=== PATIENT | male | born 1960 | race Caucasian/White ===

== ENCOUNTER 2024-05-23 15:50 | Observation (INO) | payer BC ==
[2024-05-23 17:15] VITALS: BMI 20.9
[2024-05-23] MEDS: FLU (Fluarix Triv) TS24-25(6MOS UP)/PF 45 MCG/0.5 ML Syringe IM ONE (17:26)
[2024-05-23] MEDS: NACHLORIDE 0.45% 1,000 ML IV SCH ×2 (17:48→20:21)
--- NOTE | 2024-05-23 17:55 | RAD REPORT ---
Procedure: Chest Pa And Lat (2 Views) HISTORY: Vomiting.. Dehydration COMPARISON: none FINDINGS: The lungs appear clear of acute infiltrate. No significant pleural effusion noted. The heart is normal size. IMPRESSION: No acute abnormality is displayed.
[2024-05-23] MEDS ORDERED: ONDANSETRON 4 MG (ODT) TAB PO PRN (18:00)
[2024-05-23] MEDS ORDERED: LOPERAMIDE HCL 2 MG CAPSULE PO PRN (18:00)
[2024-05-23] MEDS ORDERED: POLYETHYL GLY 3350 17 GM/DOSE PO PRN (18:00)
[2024-05-23] MEDS ORDERED: ONDANSETRON 4 MG/2 ML VIAL IV PRN (18:00)
[2024-05-23] MEDS ORDERED: ACETAMINOPHEN 325 MG TABLET PO PRN (18:00)
[2024-05-23] MEDS ORDERED: DIPHENHYDRAMINE 25 MG TAB/CAP PO PRN (18:00)
--- NOTE | 2024-05-23 18:19 | RAD REPORT ---
EXAMINATION: CT ABDOMEN AND PELVIS WITH CONTRAST CLINICAL INDICATION: Abdominal pain TECHNIQUE: CT abdomen and pelvis was performed, after the administration of 100 cc Isovue-300.. Sagit yael and coronal reconstructions were obtained. One or more of the following dose reduction techniques were used: Automated exposure control, adjustment of the mA and kV according to patient si ze, and iterative reconstruction. Unless otherwise specified, incidental findings do not require dedicated imaging follow-up. [id number]. Oral contrast was not given which limits evaluation of bowel and appendix. COMPARISON: .None FINDINGS: Mild hepatomegaly. Fatty infiltration. Cholelithiasis.One stone is at the junction of the gallbladder neck and cystic duct. Gallbladder wall appears mildly thickened The spleen, pancreas,, adrenals and kidneys unremarkable Normal appendix. No evidence of diverticulitis. Small inguinal hernias containing fat. Spondylosis involves the lumbar spine resulting in spinal stenosis Mild thickening wall of the ileum. : IMPRESSION: Mild hepatomegaly with fatty infiltration Cholelithiasis. One stone is at the junction of the gallbladder neck and cystic duct. Mild gallbladder wall thickening may indicate cholecystitis Mild thickening wall of the ileum may indicate inflammation.
[2024-05-23 18:35] LABS: PT Prothrombin Time 12.1 SECONDS (9.4-12.5); PTT, Activated Partial Thromb 30.9 SECONDS (24.3-36.9); Protime INR 1.08
[2024-05-23 19:01] LABS: Albumin 3.4 g/dL (3.4-5.0); Bilirubin Direct 0.4 mg/dL (0-0.2); Bilirubin Indirect, Calculated 0.6 mg/dL (0.2-0.8); Globulin 3.3 g/dL (2.3-3.5); Protein, Total 6.7 g/dL (6.4-8.2); Thyroid Stimulating Hormone 1.69 uIU/mL (0.358-3.740)
[2024-05-23] MEDS ORDERED: CEFOXITIN 1 GM in NA CHLORIDE 0.9% 50 ML IVPB SCH (20:30)
[2024-05-23] MEDS ORDERED: cloNIDine HCL 0.1 MG TAB PO PRN ×2 (20:41→21:00)
[2024-05-23] MEDS ORDERED: levETIRAcetam 500 MG in NA CHLORIDE 0.9% 100 ML IV SCH (21:00)
[2024-05-23] MEDS: PANTOPRAZOLE 40 MG INJ IV SCH (22:03)
[2024-05-23] MEDS: SODIUM CHLORIDE 0.9% 10ML INJ IV SCH (22:03)
[2024-05-23] MEDS: PIPER TAZO 3.375 GM in NA CHLORIDE 0.9% 100 ML IV ONE (22:04)
[2024-05-23] MEDS: LORazepam 2 MG/ML VIAL IV PRN (22:47)
[2024-05-23 22:56] LABS: Anion Gap 14.7 mEq/L (5.0-15.0); Magnesium 1.6 mg/dL (1.6-2.4); Phosphorus 2.5 mg/dL (2.5-4.9); Potassium 3.7 mEq/L (3.5-5.1)
[2024-05-23 23:08] LABS: Absolute Lymphocytes (CBC) 0.3 K/uL (0.7-4.9); Absolute Monocytes 0.3 K/uL (0.1-1.3); Absolute Neutrophil 1.9 K/uL (1.8-8.0); Basophils % 0.5 % (0-1.3); Eosinophils % 0.4 % (0-4.4); Hematocrit 39.4 % (39.6-49.0); Hemoglobin 13.4 g/dL (13.6-17.9); Lymphocytes % 12.1 % (15.3-44.8); MCH 34.7 pg (27.0-35.0); MCHC 33.9 g/dL (32.0-36.0); MCV 102.3 fL (80-100); Monocytes % 11.2 % (3.3-12.3); Neutrophils % 75.8 % (41.7-73.7); Nucleated Red Blood Cells % 0.2 % (0-0); Platelets 105 thou/uL (152-406); RBC Red Blood Cell Count 3.85 M/uL (4.33-5.43); Red Cell Distribution Width 14.2 % (12.1-15.2)
[2024-05-23 23:50] LABS: Blood Morphology Comment NOT SEEN (NOT SEEN); Platelet Estimate ADEQ; White Blood Cell Scan OK (OK)
[2024-05-24] MEDS: PIPER TAZO 3.375 GM in NA CHLORIDE 0.9% 100 ML IV SCH (02:19)
[2024-05-24 04:54] LABS: Absolute Lymphocytes (CBC) 0.3 K/uL (0.7-4.9); Absolute Monocytes 0.3 K/uL (0.1-1.3); Absolute Neutrophil 1.7 K/uL (1.8-8.0); Basophils % 0.4 % (0-1.3); Eosinophils % 0.9 % (0-4.4); Hematocrit 37.5 % (39.6-49.0); Hemoglobin 12.6 g/dL (13.6-17.9); Lymphocytes % 14.7 % (15.3-44.8); MCH 34.6 pg (27.0-35.0); MCHC 33.4 g/dL (32.0-36.0); MCV 103.5 fL (80-100); MPV 8.1 fL (7.6-11.3); Monocytes % 11.5 % (3.3-12.3); Neutrophils % 72.5 % (41.7-73.7); Nucleated Red Blood Cells % 0.1 % (0-0); Platelets 89 thou/uL (152-406); RBC Red Blood Cell Count 3.63 M/uL (4.33-5.43); Red Cell Distribution Width 14.4 % (12.1-15.2)
[2024-05-24 04:55] LABS: Anion Gap 14.8 mEq/L (5.0-15.0); Magnesium 1.5 mg/dL (1.6-2.4); Phosphorus 2.7 mg/dL (2.5-4.9); Potassium 3.8 mEq/L (3.5-5.1)
[2024-05-24 05:07] LABS: Sqamous Epithelial <5 /HPF (None Seen); Urine Bacteria None Seen /HPF (<20); Urine Bilirubin NEGATIVE (Negative); Urine Blood Negative (Negative); Urine Clarity Clear (Clear); Urine Color Yellow (Yellow); Urine Culture Reflex Order NOT NEEDED; Urine Glucose NEGATIVE (Negative); Urine Ketones 2+ (Negative); Urine Microscopic Reflex YN ORDER UMIC; Urine Mucus Slight /HPF (None Seen); Urine Nitrite NEGATIVE (Negative); Urine Protein 1+ (Negative); Urine RBC <5 /HPF (None Seen); Urine Urobilinogen Normal (Normal); Urine WBC <5 /HPF (<5)
[2024-05-24 05:17] LABS: Specific Gravity > 1.030 (1.005-1.030)
[2024-05-24 08:53] VITALS: O2SAT 98
[2024-05-24] MEDS ORDERED: cloNIDine HCL 0.1 MG TAB PO SCH (09:00)
[2024-05-24] MEDS: ENOXAPARIN 40 MG/0.4 ML SQ SCH (09:00)
[2024-05-24] MEDS: THIAMINE 200 MG/2 ML INJ IVP SCH (10:04)
[2024-05-24] MEDS: FOLIC ACID 1 MG TABLET PO SCH (10:05)
--- NOTE | 2024-05-24 12:46 | P.DS ---
Admission Date: 05/23/24 Discharge Date: 05/24/24 Disposition: ROUTINE DISCHARGE Discharge Condition: FAIR Brief History of Present Illness: I ADMITTED JOHN TO HOSPITAL HE HAD INTRACTABLE HEAVING NOT CONTROLLED BY PHERNERGAN, ZOFRAN OR COMPAZINE. I SUSPECTED A GI OR NEURO ETIOLOGY. HE HAD LOST [address] ON [address] SCAN WE FOUND CHOLECSTITIS AND CHOLEDOCHOLITHIASIS. DR CUEVAS IS READY FOR SURGERY AFTER A HOLD PERIOD OF ELIQUIS. PATIENT WANTS TO WAIT HE HAS NO HELP AT HOME. HEWILL AVOID FATTY FOODS. I ASKED HIM TO STOP ALCOHOL BEFORE BUT HE DID NOT WANT TO. HE MAY NOW. HIS HEMATOLOIGCAL PICTURE ALREADY SHOWS BONE MARROW DAMAGE FROM ETOH. HE IS STABLE TO GO HOME. HE WILL FU WITH DR. Junior AND MY OFFICE. HE WILL GET HIDA SCAN AND WE WILL PLAN SURGERY. HE WILL RESUME ELIQUIS FOR NOW THAT HE IS ON FOR UNPROVOKED PE FOR LAST 4 YEARS. Vital Signs/Physical Exam: Temp Pulse Resp BP Pulse Ox 97.5 F 52 16 142/90 H 97 05/24/24 08:00 05/24/24 08:00 05/24/24 08:00 05/24/24 08:00 05/24/24 08:00 Laboratory Data at Discharge: WBC 2.30 thou/uL (4.3-10.9) L 05/24/24 04:23 Hgb 12.6 g/dL (13.6-17.9) L 05/24/24 04:23 Hct 37.5 % (39.6-49.0) L 05/24/24 04:23 Plt Count 89 thou/uL (152-406) L 05/24/24 04:23 PT 12.1 SECONDS (9.4-12.5) 05/23/24 18:14 INR 1.08 05/23/24 18:14 APTT 30.9 SECONDS (24.3-36.9) 05/23/24 18:14 Sodium 137 mEq/L (136-145) 05/24/24 04:23 Potassium 3.8 mEq/L (3.5-5.1) 05/24/24 04:23 BUN 21 mg/dL (7-18) H 05/24/24 04:23 Creatinine 0.94 mg/dL (0.70-1.30) 05/24/24 04:23 Glucose 74 mg/dL (74-106) 05/24/24 04:23 Phosphorus 2.7 mg/dL (2.5-4.9) 05/24/24 04:23 Magnesium 1.5 mg/dL (1.6-2.4) L 05/24/24 04:23 Total Bilirubin 1.0 mg/dL (0.2-1.0) 05/23/24 18:14 AST 159 U/L (15-37) H 05/23/24 18:14 ALT 144 U/L (16-61) H 05/23/24 18:14 Alkaline Phosphatase 59 U/L (45-117) 05/23/24 18:14 Home Medications: Apixaban [Eliquis] 2.5 mg PO BID 05/23/24 cloNIDine HCL [Clonidine HCl] 0.1 mg PO DAILY 05/23/24 Cefuroxime [Ceftin*] 250 mg PO BID #14 tab 05/24/24 New Medications: Cefuroxime [Ceftin*] 250 mg PO BID #14 tab Followup: Peewee Brock MD [Primary Care Provider] -
[2024-05-24 12:55] VITALS: BP 126/71; TEMP 97.3
[2024-05-28 04:37] LABS: 1,25 Dihydroxy Vitamin D3 43 pg/mL; Vitamin D 1,25-Dihydroxy Total 43 pg/mL (18-72); Vitamin D,1,25-OH2, D2 <8 pg/mL
== END 2024-05-24 14:54 | disposition home or self-care (01) ==
LOC: 2ND 16:07
PROVIDERS: ADMIT Internal Medicine; ATTEND Internal Medicine
DX: K80.40 Calculus of bile duct with cholecystitis, unspecified, without obstruction (principal); R11.10 Vomiting, unspecified; R06.6 Hiccough; E03.9 Hypothyroidism, unspecified; D47.2 Monoclonal gammopathy; F10.90 Alcohol use, unspecified, uncomplicated
CPT/HCPCS: 85025 ×2; 81001; 80048 ×2; 36415 ×2; 83735 ×2; 84100 ×2; 85610; 82565; 80076; 85730; 82652; 84443; 82607; 74177; 71046; 94760 ×2; J3411; A4216; J2543 ×3; J2470 ×2; G0378; G0379

== ENCOUNTER 2024-06-22 13:34 | Emergency (ER) | payer BC ==
[2024-06-22 14:30] LABS: Absolute Lymphocytes (CBC) 0.4 K/uL (0.7-4.9); Absolute Monocytes 0.3 K/uL (0.1-1.3); Basophils % 0.9 % (0-1.3); Eosinophils % 1.3 % (0-4.4); Hematocrit 39.1 % (39.6-49.0); Lymphocytes % 15.2 % (15.3-44.8); MCH 35.1 pg (27.0-35.0); MCHC 33.2 g/dL (32.0-36.0); MCV 105.8 fL (80-100); MPV 7.8 fL (7.6-11.3); Monocytes % 10.4 % (3.3-12.3); Neutrophils % 72.2 % (41.7-73.7); Platelets 138 thou/uL (152-406); Red Cell Distribution Width 15.4 % (12.1-15.2)
[2024-06-22 14:40] LABS: Sqamous Epithelial <5 /HPF (None Seen); Urine Bacteria None Seen /HPF (<20); Urine Culture Reflex Order NOT NEEDED; Urine Microscopic Reflex YN ORDER UMIC; Urine Mucus 1+ /HPF (None Seen); Urine RBC <5 /HPF (None Seen); Urine WBC None Seen /HPF (<5)
[2024-06-22 14:45] LABS: Anion Gap 10.2 mEq/L (5.0-15.0); Potassium 3.2 mEq/L (3.5-5.1)
[2024-06-22 14:45] LABS: Specific Gravity 1.021 (1.005-1.030); Urine Bilirubin Negative (Negative); Urine Clarity Cloudy (Clear); Urine Color Yellow (Yellow); Urine Glucose Negative (Negative); Urine Ketones 1+ (Negative)
[2024-06-22] MEDS ORDERED: NA CHLORIDE 0.9% 1,000 ML ONE (14:45)
[2024-06-22 14:46] LABS: Urine Blood Negative (Negative); Urine Nitrite Negative (Negative); Urine Protein Negative (Negative); Urine Urobilinogen Normal (Normal)
[2024-06-22 15:13] LABS: Platelet Estimate DECR; White Blood Cell Scan OK (OK)
[2024-06-22 15:14] LABS: Blood Morphology Comment NOTED (NOT SEEN); Poikilocytosis 1+
--- NOTE | 2024-06-22 15:43 | EDPHYS ---
Physician Documentation [facility] Name: Geo Durant Age: 63 yrs Sex: Male : 1960 Arrival Date: 06/22/2024 Time: 13:34 Bed DX3 Private MD: ED Physician Luigi Floyd HPI: 06/22 14:47 This 63 yrs old Male presents to ER via EMS with complaints of General Weakness. ec2 14:47 Patient arrives today due to concern for dehydration. Patient reports that he has been ec2 experiencing decreased p.o. intake and general weakness. Denies any vomiting. Reports some dry heaving occasionally. Patient reports no urinary complaints, no cough or cold symptoms, no chest pain or difficulty breathing.. Historical: - Allergies: 13:50 No Known Allergies; iw - Home Meds: 13:50 nebivolol oral daily [Active]; iw - PMHx: 13:50 Hypertensive disorder; PE; iw - Immunization history:: Adult Immunizations not up to date. - Infectious Disease History:: Denies. - Social history:: Smoking status: Patient denies any tobacco usage or history of. ROS: 14:48 Constitutional: as per hpi ec2 Exam: 14:48 Constitutional: GEN: NAD Head: atraumatic Eyes: EOMI Ears: External ears are ec2 normal. CV: regular rate LUNGS: no respiratory distress ABD: non-distended, soft nontender, no guarding SKIN: no evidence of rashes MSK: no evidence of trauma Vital Signs: 13:47 BP 177 / 99; Pulse 51; Resp 16; Temp 97.6; Pulse Ox 96% on R/A; Weight 73.48 kg; Height iw 6 ft. 0 in. ; Pain 0/10; 16:01 BP 155 / 88; Pulse 55; Resp 17; Pulse Ox 99% on R/A; rs5 13:47 Body Mass Index 21.97 (73.48 kg, 182.88 cm) iw 13:47 Pain Scale: Adult iw MDM: 14:10 Medical Screening Exam initiated ec2 14:48 Data reviewed: vital signs, nurses notes. ED course: Patient arrives today for ec2 decreased p.o. intake. Examination is unrevealing. Will obtain lab work shows slight hypokalemia otherwise reassuring. Patient received 2 L of crystalloid, does not want any nausea medication despite his reported dry heaves.. 15:43 ED course: On reassessment patient remains well-appearing in no acute distress. ec2 Discharged home. Return precautions given.. 06/22 13:59 Order name: CBC with Diff; Complete Time: 15:14 iw 06/22 13:59 Order name: Basic Metabolic Panel; Complete Time: 14:47 iw 06/22 13:59 Order name: Urinalysis w/ reflexes; Complete Time: 14:47 iw 06/22 15:14 Order name: CBC Smear Scan; Complete Time: 15:14 EDMS 06/22 14:03 Order name: IV; Complete Time: 14:04 ec2 Administered Medications: 13:47 Drug: NS 0.9% IV 1000 ml IV at 1000 ml once; to be given as a bolus over 60 minutes ss {Note: NS continued from EMS administration.} Route: IV; Rate: 1000 ml; Site: left forearm; 14:05 Follow up: IV Status: Completed infusion; IV Intake: 1000ml ss 14:52 Drug: NS 0.9% IV 1000 ml IV at 1000 ml once; to be given as a bolus over 60 minutes iw Route: IV; Rate: 1000 ml; Site: left forearm; 16:01 Follow up: Response: No adverse reaction; IV Status: Completed infusion; IV Intake: rs5 999ml Disposition Summary: 06/22/24 15:43 Discharge Ordered Notes: Location: Home ec2 Condition: Stable ec2 Diagnosis - Dehydration ec2 - Hypokalemia ec2 Followup: ec2 - With: Private Physician - When: - Reason: Re-evaluation by your physician Discharge Instructions: - Discharge Summary Sheet ec2 - Dehydration, Adult ec2 - Potassium Content of Foods ec2 Forms: - Medication Reconciliation Form ec2 - Antibiotic Education ec2 - Prescription Opioid Use ec2 - Patient Portal Instructions ec2 - Leadership Thank You Letter ec2 Signatures: Dispatcher [employer] Ivelisse Bañuelos RN RN Princess Potts RN RN Luigi Floyd MD MD ec2 Narendra Hernandez RN rs5 Corrections: (The following items were deleted from the chart) 13:59 13:59 CBC+H.LAB.BRZ ordered. EDMS EDMS 13:59 13:59 BASIC METABOLIC PANEL+C.LAB.BRZ ordered. EDMS EDMS 13:59 13:59 Urinalysis+U.MAIA ordered. EDMS EDMS
--- NOTE | 2024-06-22 15:43 | ER ---
Nurse's Notes [facility] Name: Geo Durant Age: 63 yrs Sex: Male : 1960 Arrival Date: 06/22/2024 Time: 13:34 Bed DX3 Private MD: Diagnosis: Dehydration;Hypokalemia Presentation: 06/22 13:47 Chief complaint: Patient states: feels dehydrated, feels tired and has a dry mouth, iw last time this happened he was admitted , sees Dr. Brock. Coronavirus screen: At this time, the client does not indicate any symptoms associated with coronavirus-19. Ebola Screen: No symptoms or risks identified at this time. Initial Sepsis Screen: Does the patient meet any 2 criteria? No. Patient's initial sepsis screen is negative. Does the patient have a suspected source of infection? No. Patient's initial sepsis screen is negative. Risk Assessment: Do you want to hurt yourself or someone else? Patient reports no desire to harm self or others. Onset of symptoms was June 22, 2024. 13:47 Method Of Arrival: EMS: [facility] iw 13:47 Acuity: CLARK 3 iw 13:52 Care prior to arrival: Medication(s) given: Normal saline infusion, 200 mL IV iw initiated. 20 GA, in the left forearm. Triage Assessment: 13:51 General: Appears in no apparent distress. Behavior is calm, cooperative. Pain: Denies iw pain. Historical: - Allergies: 13:50 No Known Allergies; iw - Home Meds: 13:50 nebivolol oral daily [Active]; iw - PMHx: 13:50 Hypertensive disorder; PE; iw - Immunization history:: Adult Immunizations not up to date. - Infectious Disease History:: Denies. - Social history:: Smoking status: Patient denies any tobacco usage or history of. Screenin:11 [facility] ED Fall Risk Assessment (Adult) History of falling in the last 3 months, iw including since admission No falls in past 3 months (0 pts) Confusion or Disorientation No (0 pts) Intoxicated or Sedated No (0 pts) Impaired Gait No (0 pts) Mobility Assist Device Used No (0 pt) Altered Elimination No (0 pt) Score/Fall Risk Level 0 - 2 = Low Risk Oriented to surroundings, Maintained a safe environment. Abuse screen: Denies threats or abuse. Denies injuries from another. Nutritional screening: No deficits noted. Tuberculosis screening: No symptoms or risk factors identified. Assessment: 14:00 General: Appears in no apparent distress. comfortable, Behavior is calm, cooperative. iw Pain: Denies pain. Neuro: Simeon Agitation-Sedation Scale (RASS): Level of Consciousness is awake, alert, obeys commands, Oriented to person, place, time, situation, [employer] are equal bilaterally Moves all extremities. Full function. Cardiovascular: Capillary refill < 3 seconds in bilateral fingers Patient's skin is warm and dry. Respiratory: Respiratory effort is even, unlabored, Respiratory pattern is regular, symmetrical. Derm: Skin is intact, is healthy with good turgor. Musculoskeletal: Range of motion: intact in all extremities. 15:00 Reassessment: Patient appears in no apparent distress at this time. Patient and/or iw family updated on plan of care and expected duration. Pain level reassessed. Patient is alert, oriented x 3, equal unlabored respirations, skin warm/dry/pink. 15:55 Reassessment: Patient and/or family updated on plan of care and expected duration. Pain rs5 level reassessed. Patient is alert, oriented x 3, equal unlabored respirations, skin warm/dry/pink. 15:55 GI: Abdomen is round non-distended. : No signs and/or symptoms were reported rs5 regarding the genitourinary system. EENT: No signs and/or symptoms were reported regarding the EENT system. Vital Signs: 13:47 BP 177 / 99; Pulse 51; Resp 16; Temp 97.6; Pulse Ox 96% on R/A; Weight 73.48 kg; Height iw 6 ft. 0 in. ; Pain 0/10; 16:01 BP 155 / 88; Pulse 55; Resp 17; Pulse Ox 99% on R/A; rs5 13:47 Body Mass Index 21.97 (73.48 kg, 182.88 cm) iw 13:47 Pain Scale: Adult iw ED Course: 13:40 Patient arrived in ED. iw 13:50 Triage completed. iw 13:51 Arm band placed on. iw 13:55 Patient has correct armband on for positive identification. Adult w/ patient. rs5 14:00 No provider procedures requiring assistance completed. Maintain EMS IV. Dressing iw intact. Good blood return noted. Site clean \T\ dry. Gauge \T\ site: 20 LFA. 14:02 Luigi Floyd MD is Attending Physician. ec2 16:05 Provided Education on: discharge instructions . rs5 16:10 Ivelisse Frank, RN is Primary Nurse. iw 16:12 IV discontinued, intact, bleeding controlled, No redness/swelling at site. Pressure iw dressing applied. Administered Medications: 13:47 Drug: NS 0.9% IV 1000 ml IV at 1000 ml once; to be given as a bolus over 60 minutes ss {Note: NS continued from EMS administration.} Route: IV; Rate: 1000 ml; Site: left forearm; 14:05 Follow up: IV Status: Completed infusion; IV Intake: 1000ml ss 14:52 Drug: NS 0.9% IV 1000 ml IV at 1000 ml once; to be given as a bolus over 60 minutes iw Route: IV; Rate: 1000 ml; Site: left forearm; 16:01 Follow up: Response: No adverse reaction; IV Status: Completed infusion; IV Intake: rs5 999ml Medication: 16:12 VIS not applicable for this client. iw Intake: 14:05 IV: 1000ml; Total: 1000ml. ss 16:01 IV: 999ml; Total: 1999ml. rs5 Outcome: 15:43 Discharge ordered by . ec2 16:10 Patient left the ED. rs5 16:10 Discharged to home ambulatory, rs5 16:10 Condition: stable 16:10 Discharge instructions given to patient, family, Instructed on discharge instructions, follow up and referral plans. Demonstrated understanding of instructions, follow-up care, Signatures: Ivelisse Frank RN RN Princess Potts RN RN Narendra Hernandez RN RN rs5 Luigi Floyd MD MD ec2 Corrections: (The following items were deleted from the chart) 16:44 16:21 Patient left the ED. rs5 rs5
[2024-06-22 16:39] VITALS: BP 177/99; TEMP 97.6; O2SAT 96
== END 2024-06-22 16:21 | disposition home or self-care (01) ==
LOC: ER 13:34
DX: E86.0 Dehydration (principal); E87.6 Hypokalemia; I10 Essential (primary) hypertension
CPT/HCPCS: 85025; 81001; 80048; 36415; 96360; 99284; J7030

== ENCOUNTER 2024-07-07 09:02 | Day surgery (SDC) | payer BC ==
[2024-07-05 14:09] LABS: Albumin 3.5 g/dL (3.4-5.0); Anion Gap 9.8 mEq/L (5.0-15.0); Bilirubin Total 0.9 mg/dL (0.2-1.0); Globulin 3.6 g/dL (2.3-3.5); Potassium 3.8 mEq/L (3.5-5.1); Protein, Total 7.1 g/dL (6.4-8.2)
[2024-07-07] MEDS: Ringers Lactate 1,000 ML IV ONE ×2 (09:30→13:09)
[2024-07-07] MEDS: CEFAZOLIN SODIUM 2 GM/VIAL ONE (09:56)
[2024-07-07] MEDS: LIDOCAINE HCL/EPINEPHRINE 20 ML MDV ONE (09:57)
[2024-07-07] MEDS ORDERED: ROCURONIUM 50 MG/5 ML VIAL IV ONE (10:42)
[2024-07-07] MEDS ORDERED: propofoL 200 MG/20 ML VIAL IV ONE (10:42)
[2024-07-07] MEDS ORDERED: LIDOCAINE 2% MPF 5 ML VIAL ONE (10:42)
[2024-07-07] MEDS ORDERED: FENTANYL CITR 100 MCG/2 ML ONE (10:43)
[2024-07-07] MEDS ORDERED: ONDANSETRON 4 MG/2 ML VIAL ONE (10:43)
[2024-07-07] MEDS ORDERED: MIDAZOLAM HCL 2 MG/2 ML INJ ONE ×2 (10:43→11:18)
[2024-07-07] MEDS ORDERED: KETOROLAC 30 MG/ML INJ ONE ×2 (12:02→13:39)
[2024-07-07] MEDS ORDERED: dexAMETHasone 10 MG/ML VIAL ONE ×2 (12:02→13:39)
[2024-07-07] MEDS ORDERED: EPHEDRINE SULF 50 MG/ML VIAL ONE (12:15)
[2024-07-07] MEDS ORDERED: NS 0.9% VIAL 10 ML ONE (12:27)
[2024-07-07] MEDS ORDERED: VECURONIUM 10 MG/VIAL IV ONE (12:27)
[2024-07-07] MEDS ORDERED: GLYCOPYRROLATE 0.2 MG/ML SYR ONE (12:42)
[2024-07-07] MEDS ORDERED: NEOSTIGMINE 1 MG/ML -10 ML VIAL ONE (12:42)
--- NOTE | 2024-07-07 12:50 | P.OP ---
Preoperative diagnosis: Chronic Cholecystitis Postoperative diagnosis: Chronic Cholecystitis Primary procedure: Laparoscopic Cholecystectomy with ICG Cholangiography Anesthesia: GETA + Local Estimated blood loss: <5cc Specimen: Gallbladder Findings: chronic cholecystitis Complications: None Transferred to: Recovery Room Condition: Good
[2024-07-07] MEDS ORDERED: BUPIVACAINE 0.5% PF 10 ML VIAL ONE (13:48)
[2024-07-07 14:25] VITALS: TEMP 97; O2SAT 99
--- NOTE | 2024-07-07 14:28 | OP ---
Date of Procedure: 07/07/2024 Surgeon: John Damon MD, Preoperative Diagnosis: Chronic cholecystitis. Postoperative Diagnosis: Chronic cholecystitis. Procedures Performed: Laparoscopic cholecystectomy with indocyanine green cholangiography. Anesthesia: General endotracheal plus local with 1% lidocaine with epinephrine. Estimated Blood Loss: Less than 5 cc. Specimen: Gallbladder. Findings: Chronic cholecystitis. Complications: None. Disposition: The patient was transferred to recovery room in good condition. Procedure In Detail: After informed consent was obtained, the patient was brought to the operating r oom, prepped and draped in the usual sterile fashion. After adequate anesthesia was achieved, I anes thetized an area in the supraumbilical position down to subcutaneous tissues. 5-mm 0-degree optical trocar was introduced into the abdomen without incident or complication. Insufflation was obtained t o 15 mmHg, at this time. There was no injury to vital structures upon entry into the abdomen. Two a dditional trocars were placed, one in the epigastrium and one in the right upper quadrant. Both of t hese were similarly anesthetized, sharply incised. A 5 mm trocar was placed under direct visualizati on without incident or complication. The patient was then positioned in the head up right-side up po sition. Ratcheted grasper was used to grasp the patient's gallbladder placed towards patient's right shoulder. Dissection continued down the Luciano pouch. The gallbladder was dissected out 2 struct ures, identified both cystic duct and cystic artery. The critical view of safety was obtained, at th is point. Indocyanine green cholangiography was performed at this point, confirmed the anatomic desc ription as described above with confluence of the cystic duct, common duct junction noted. At this p oint, I placed double titanium clips, doubly on the proximal side, singly on the distal side of both cystic duct and cystic artery, ligated these structures between Endo Zheng. I then removed the gall bladder from the hepatic fossa without incident or complication using electrocautery, placed in EndoC atch bag, removed through umbilical trocar site, and sent off for pathologic examination. At this po int, the area was copiously irrigated once again. Indocyanine green cholangiography was confirmed. No leakage of bile at the end of the procedure. At this point, patient was positioned back in neutra l position. Remainder of effluent was suctioned out. I then closed the 12 mm trocar site using a Asmita Johnson suture passer with 0 Vicryl in an interrupted fashion with good approximation of tissue . The abdomen was desufflated under direct visualization without incident or complication. Remainde r of trocars were removed. All skin incisions were then copiously irrigated and closed with a 4-0 Mo nocryl in a running fashion. Dermabond was placed over top. The patient tolerated procedure without incident or complication, and transferred to PACU in good condition. All counts were correct at the end of the case. MARCI/SEBLE Voice ID: [id number] Report ID: [id number]
[2024-07-07 14:38] VITALS: BP 160/90
== END 2024-07-07 14:30 | disposition home or self-care (01) ==
LOC: OR 09:02
PROVIDERS: ATTEND Surgery
PROC: BF50200 Other Imaging of Bile Ducts using Fluorescing Agent, Indocyanine Green Dye, Intraoperative (ICD-10-PCS; 2024-07-07)
PROC: 0FT44ZZ Resection of Gallbladder, Percutaneous Endoscopic Approach (ICD-10-PCS; principal; 2024-07-07 11:30)
DX: K80.10 Calculus of gallbladder with chronic cholecystitis without obstruction (principal)
CPT/HCPCS: 36415; 88304; 80053; 47563; A4216; J2704; J2710; J2003; J3010; J1100 ×2; J2405; J7120 ×2; J2250

== ENCOUNTER 2024-07-24 13:07 | Inpatient (IN) | payer BC ==
[2024-07-24 13:52] LABS: Absolute Lymphocytes (CBC) 0.4 K/uL (0.7-4.9); Absolute Monocytes 0.4 K/uL (0.1-1.3); Absolute Neutrophil 4.2 K/uL (1.8-8.0); Basophils % 0.7 % (0-1.3); Eosinophils % 0.4 % (0-4.4); Hematocrit 41.3 % (39.6-49.0); Hemoglobin 14.2 g/dL (13.6-17.9); Lymphocytes % 7.5 % (15.3-44.8); MCHC 34.5 g/dL (32.0-36.0); MCV 101.5 fL (80-100); Monocytes % 7.6 % (3.3-12.3); Neutrophils % 83.8 % (41.7-73.7); Platelets 181 thou/uL (152-406); RBC Red Blood Cell Count 4.07 M/uL (4.33-5.43); Red Cell Distribution Width 13.3 % (12.1-15.2)
[2024-07-24 14:01] LABS: PT Prothrombin Time 11.9 SECONDS (9.4-12.5); PTT, Activated Partial Thromb 29.8 SECONDS (24.3-36.9); Protime INR 1.13
[2024-07-24 14:14] LABS: SARS-CoV-2 Antigen CONTROL BLUE LINE VIS/BG OK; SARS-CoV-2 Antigen Rapid Res Negative (Negative)
[2024-07-24 14:20] LABS: Albumin 3.2 g/dL (3.4-5.0); Albumin/Globulin Ratio 0.8 (1.1-1.8); Anion Gap 16.2 mEq/L (5.0-15.0); Bilirubin Direct 0.4 mg/dL (0-0.2); Bilirubin Indirect, Calculated 0.8 mg/dL (0.2-0.8); Bilirubin Total 1.2 mg/dL (0.2-1.0); Magnesium 1.7 mg/dL (1.6-2.4); Potassium 4.2 mEq/L (3.5-5.1); Protein, Total 7.2 g/dL (6.4-8.2); Troponin High Sensitivity 5.1 pg/mL (<58.9)
[2024-07-24 14:51] LABS: Specific Gravity 1.027 (1.005-1.030); Sqamous Epithelial <5 /HPF (None Seen); Urine Bacteria None Seen /HPF (<20); Urine Bilirubin NEGATIVE (Negative); Urine Blood Trace (Negative); Urine Clarity Turbid (Clear); Urine Color Yellow (Yellow); Urine Crystals Unidentified Few /HPF (None Seen); Urine Culture Reflex Order NOT NEEDED; Urine Glucose NEGATIVE (Negative); Urine Ketones 3+ (Negative); Urine Microscopic Reflex YN ORDER UMIC; Urine Mucus 4+ /HPF (None Seen); Urine Nitrite NEGATIVE (Negative); Urine Protein 1+ (Negative); Urine RBC <5 /HPF (None Seen); Urine Urobilinogen Normal (Normal); Urine WBC <5 /HPF (<5); Urine Yeast (Budding) Trace /HPF (None Seen)
--- NOTE | 2024-07-24 15:04 | RAD REPORT ---
EXAMINATION: CT HEAD WITHOUT CONTRAST CT CERVICAL SPINE WITHOUT CONTRAST CLINICAL INDICATION: Male, 63 years old. SYNCOPE TECHNIQUE: Axial CT images from the skull base to the vertex without intravenous contrast. Axial CT i mages through the cervical spine were obtained without intravenous contrast. Sagittal and coronal reformatted images were created from the data set. Coronal and sagittal reformatted images were creat ed from the data set. One or more of the following dose reduction techniques were used: Automated exposure control, adjustment of the mA and/or kV according to patient size, and/or iterative reconstr uction. Unless otherwise specified, incidental findings do not require dedicated imaging follow-up. [id number]. COMPARISON: No prior exam. FINDINGS: Head: INTRACRANIAL: No acute intracranial hemorrhage. No hydrocephalus. No mass effect or midline shift. No significant white matter disease VASCULATURE: No visualized abnormalities in the arteries or dural venous sinuses. SCALP/SKULL: No significant soft tissue or osseous abnormalities. SINUSES: The visualized paranasal sinuses and mastoid air cells are predominantly clear. Cervical spine: ALIGNMENT: Reversal of the normal cervical lordosis. Trace anterolisthesis of C2 on C3. This is likel y chronic. BONE: Vertebral body heights are maintained. No aggressive osseous lesions. DEGENERATIVE CHANGES: Multilevel cervical spondylosis with varying degrees of neural foraminal narrow ing. This is most pronounced at C3-4 C4-5, C5-6. At least mild to moderate central spinal stenosis is present. No high-grade central spinal stenosis. SOFT TISSUE: No significant abnormalities in the soft tissue of the neck. The visualized lung apices are clear. IMPRESSION: No acute intracranial abnormality. No acute fracture or traumatic malalignment of the cervical spine.
--- NOTE | 2024-07-24 15:11 | RAD REPORT ---
EXAM: Chest Single View HISTORY: COUGH COMPARISON: 05/23/2024 FINDINGS: LUNGS/PLEURA: The lungs are clear. No pleural effusions or pneumothorax. No pulmonary edema. MEDIASTINUM: The mediastinal silhouette is within normal limits. CARDIAC: The cardiac silhouette is within normal limits. UPPER ABDOMEN: No significant abnormality. BONES: No acute abnormality. LINES/TUBES/OTHER: N/A IMPRESSION: No evidence of acute cardiopulmonary disease.
--- NOTE | 2024-07-24 16:41 | ER ---
Nurse's Notes [facility] Name: Geo Durant Age: 63 yrs Sex: Male : 1960 Arrival Date: 07/24/2024 Time: 13:07 Bed 26 Private MD: Diagnosis: Syncope Near;Dehydration Presentation: 07/24 13:12 Chief complaint: Patient states: syncopal episode while sitting down in chair working. ss Pt reports cough, chest congestion and not feeling well x 1 week. HX of vince 1 week ago. Admits to drinking daily. Coronavirus screen: Client denies travel out of the [place] in the last 14 days. Ebola Screen: Patient denies exposure to infectious person. Patient denies travel to an Ebola-affected area in the 21 days before illness onset. Initial Sepsis Screen: Does the patient meet any 2 criteria? No. Patient's initial sepsis screen is negative. Does the patient have a suspected source of infection? No. Patient's initial sepsis screen is negative. Risk Assessment: Do you want to hurt yourself or someone else? Patient reports no desire to harm self or others. Onset of symptoms was July 17, 2024. 13:12 Method Of Arrival: EMS: [facility] 13:12 Acuity: CLARK 3 13:27 Care prior to arrival: Glucose check: 117. ss Historical: - Allergies: 13:18 No Known Allergies; ss - PMHx: 13:18 Hypertensive disorder; PE; ss - Immunization history:: Adult Immunizations unknown. - Infectious Disease History:: Denies. - Social history:: Smoking status: Patient denies any tobacco usage or history of. Patient uses alcohol, on a daily basis. 4- 8 oz of whiskey, last drink yesterday 07-23-24. Screenin:15 [facility] ED Fall Risk Assessment (Adult) History of falling in the last 3 months, jl7 including since admission Yes- physiologic fall (2 pts) Confusion or Disorientation No (0 pts) Intoxicated or Sedated No (0 pts) Impaired Gait No (0 pts) Mobility Assist Device Used No (0 pt) Altered Elimination No (0 pt) Score/Fall Risk Level 0 - 2 = Low Risk Oriented to surroundings, Maintained a safe environment. Abuse screen: Denies threats or abuse. Denies injuries from another. Nutritional screening: No deficits noted. Tuberculosis screening: No symptoms or risk factors identified. Assessment: 13:15 General: Appears in no apparent distress. uncomfortable, Behavior is calm, cooperative, jl7 appropriate for age. Pain: Denies pain. Neuro: Level of Consciousness is awake, alert, obeys commands, Oriented to person, place, time, situation. Cardiovascular: Rhythm is regular. Respiratory: Airway is patent Respiratory effort is even, unlabored, Respiratory pattern is regular, symmetrical. Derm: Skin is pink, warm \T\ dry. 14:13 Reassessment: Pt ambulated to restroom with steady gate to provide urine sample. jl7 Vital Signs: 13:12 Resp 18; Temp 97.9(O); Weight 72.57 kg; Height 6 ft. 0 in. ; Pain 0/10; ss 13:36 BP 130 / 86; Pulse 52; Pulse Ox 99% ; ss 13:12 Body Mass Index 21.70 (72.57 kg, 182.88 cm) ss 13:12 Pain Scale: Adult ss ED Course: 13:12 Patient arrived in ED. ss 13:14 Moi Strange, URIEL-C is PHCP. dr5 13:14 Wade Morel MD is Attending Physician. dr5 13:15 Patient has correct armband on for positive identification. Provided Education on: use jl7 of call martin. 13:16 Triage completed. ss 13:18 Arm band placed on right wrist. ss 13:42 Influenza Screen (a \T\ B) Sent. bc6 13:42 SARS RAPID Sent. bc6 13:43 Basic Metabolic Panel Sent. bc6 13:43 CBC with Diff Sent. bc6 13:43 Hepatic Function Sent. bc6 13:43 Magnesium Sent. bc6 13:43 Protime (+inr) Sent. bc6 13:43 Ptt, Activated Sent. bc6 13:43 Troponin High Sensitivity Sent. bc6 13:43 Initial lab(s) drawn, by me, sent to lab. Maintain EMS IV. Dressing intact. Good blood bc6 return noted. Site clean \T\ dry. Gauge \T\ site: 20G \T\ LAC. Flushed with 10 mL NS. 13:46 Dolores Wallace RN is Primary Nurse. jl7 14:41 Chest Single View XRAY In Process Unspecified. EDMS 14:42 CT Head C Spine In Process Unspecified. EDMS 16:40 Jimy Valenzuela is Hospitalizing Provider. dr5 17:15 CT Chest For PE Angio In Process Unspecified. EDMS 17:15 CT Abdomen - IV Contrast Only In Process Unspecified. EDMS Administered Medications: 13:36 Drug: NS 0.9% IV 1000 ml IV at 1000 ml once; to be given as a bolus over 60 minutes ss Route: IV; Rate: 1000 ml; Site: left antecubital; Medication: 13:15 VIS not applicable for this client. jl7 Outcome: 16:40 Decision to Hospitalize by Provider. dr5 07/25 17:30 Patient left the ED. ss Signatures: Dispatcher [employer] EDMS Princess Potts, RN RN Dolores Wallace RN RN jl7 Angelita Huber 6 Moi Strange, FOOD CART ATTENDANT-C FOOD CART ATTENDANT-Cdr5
--- NOTE | 2024-07-24 16:41 | EDPHYS ---
Physician Documentation [facility] Name: Geo Durant Age: 63 yrs Sex: Male : 1960 Arrival Date: 07/24/2024 Time: 13:07 Bed 26 Private MD: ED Physician Wade Morel HPI: 07/24 13:30 This 63 yrs old Male presents to ER via EMS with complaints of Syncope. dr5 13:30 The patient has experienced syncope, became unresponsive, collapsed. Onset: The dr5 symptoms/episode began/occurred acutely. Duration: This was a single episode, that lasted an unknown period of time. Patient is a 63-year-old male with history of hypertension and PE coming in with syncope. Patient reports that he was sitting at his computer chair when he suddenly lost consciousness and woke up on the floor. Patient reports that he then got up and got into his bed so he went and fall again. Patient reports he is a patient of Dr. Brock and has been working with him to figure out why he has dry heaving. Patient denies any pain or symptoms at this time.. Historical: - Allergies: 13:18 No Known Allergies; ss - PMHx: 13:18 Hypertensive disorder; PE; ss - Immunization history:: Adult Immunizations unknown. - Infectious Disease History:: Denies. - Social history:: Smoking status: Patient denies any tobacco usage or history of. Patient uses alcohol, on a daily basis. 4- 8 oz of whiskey, last drink yesterday 07-23-24. ROS: 13:30 Constitutional: as per hpi dr5 Exam: 13:30 Constitutional: This is a well developed, well nourished patient who is awake, alert, dr5 and in no acute distress. Head/Face: Normocephalic, atraumatic. Eyes: Pupils equal round and reactive to light, extra-ocular motions intact. Lids and lashes normal. Conjunctiva and sclera are non-icteric and not injected. Cornea within normal limits. Periorbital areas with no swelling, redness, or edema. Neck: Trachea midline, no thyromegaly or masses palpated, and no cervical lymphadenopathy. Supple, full range of motion without nuchal rigidity, or vertebral point tenderness. No Meningismus. Chest/axilla: Normal chest wall appearance and motion. Nontender with no deformity. No lesions are appreciated. Cardiovascular: Regular rate and rhythm with a normal S1 and S2. Normal PMI, no JVD. No pulse deficits. Respiratory: Lungs have equal breath sounds bilaterally, clear to auscultation. No rales, rhonchi or wheezes noted. No increased work of breathing, no retractions or nasal flaring. Back: No spinal tenderness. No costovertebral tenderness. Full range of motion. Skin: Warm, dry with normal turgor. Normal color with no rashes, no lesions, and no evidence of cellulitis. Neuro: Awake and alert, GCS 15, oriented to person, place, time, and situation. Cranial nerves II-XII grossly intact. Motor strength 5/5 in all extremities. Sensory grossly intact. Cerebellar exam normal. Normal gait. Vital Signs: 13:12 Resp 18; Temp 97.9(O); Weight 72.57 kg; Height 6 ft. 0 in. ; Pain 0/10; ss 13:36 BP 130 / 86; Pulse 52; Pulse Ox 99% ; ss 13:12 Body Mass Index 21.70 (72.57 kg, 182.88 cm) ss 13:12 Pain Scale: Adult ss MDM: 13:15 Medical Screening Exam initiated dr5 19:04 Differential Diagnosis: cerebrovascular accident, Hepatitis, electrolyte imbalance, dr5 intracranial hemorrhage versus tumor, syncope. Data reviewed: vital signs, nurses notes. Consideration of Admission/Observation Patient was admitted/placed on observation. I considered the following discharge prescriptions or medication management in the emergency department Medications were administered in the Emergency Department. See MAR. Test considered but Not performed:. Care significantly affected by the following Social Determinants of Health: Poor access to healthcare and/or lack of insurance, Poor access to transportation, Problems related to employment. Counseling: I had a detailed discussion with the patient and/or guardian regarding the historical points, exam findings, and any diagnostic results supporting the discharge/admit diagnosis, the presence of at least one elevated blood pressure reading (>120/80) during this emergency department visit, the need for further work-up and treatment in the hospital. ED course: Had multiple discussions with patient's regarding what happened. Will admit patient for concerns of syncope that occurred for no reason while patient was at rest. Admit for observation. Patient reports that he has had hiccups and dry heaving for months now that Dr. Brock is working on. Will admit for observation for syncope workup.. 07/24 13:24 Order name: Basic Metabolic Panel; Complete Time: 14:20 [facility] 07/24 13:24 Order name: CBC with Diff; Complete Time: 14:04 [facility] 07/24 13:24 Order name: Hepatic Function; Complete Time: 14:20 [facility] 07/24 13:24 Order name: Magnesium; Complete Time: 14:20 [facility] 07/24 13:24 Order name: Protime (+inr); Complete Time: 14:04 [facility] 07/24 13:24 Order name: Ptt, Activated; Complete Time: 14:04 [facility] 07/24 13:24 Order name: Troponin High Sensitivity; Complete Time: 14:20 [facility] 07/24 13:24 Order name: Urinalysis w/ reflexes; Complete Time: 14:52 [facility] 07/24 13:24 Order name: SARS RAPID; Complete Time: 14:14 [facility] 07/24 13:24 Order name: Influenza Screen (a \T\ B); Complete Time: 14:14 [facility] 07/24 16:49 Order name: ETOH Level; Complete Time: 19:59 07/24 18:02 Order name: Acute Hepatitis Panel [facility] 07/24 18:02 Order name: Acute Hepatitis Panel; Complete Time: 13:59 [facility] 07/24 18:02 Order name: CBC with Automated Diff [facility] 07/24 18:02 Order name: CBC with Automated Diff; Complete Time: 13:59 [facility] 07/24 18:02 Order name: Comprehensive Metabolic Panel [facility] 07/24 18:02 Order name: Comprehensive Metabolic Panel; Complete Time: 13:59 [facility] 07/25 05:59 Order name: D-Dimer; Complete Time: 13:59 [facility] 07/24 13:24 Order name: CT Head C Spine; Complete Time: 15:05 [facility] 07/24 13:24 Order name: Chest Single View XRAY; Complete Time: 15:18 [facility] 07/24 16:49 Order name: CT Chest For PE Angio; Complete Time: 19:59 07/24 16:49 Order name: CT Abdomen - IV Contrast Only; Complete Time: 19:59 07/24 18:04 Order name: Echo with Doppler [facility] 07/24 13:24 Order name: EKG; Complete Time: 13:24 [facility] 07/24 13:24 Order name: Cardiac monitoring; Complete Time: dr5 07/24 13:24 Order name: EKG - Nurse/Tech; Complete Time: dr5 07/24 13:24 Order name: IV Saline Lock; Complete Time: dr5 07/24 13:24 Order name: Labs collected and sent; Complete Time: 13: dr5 07/24 13:24 Order name: NPO; Complete Time: dr5 07/24 13:24 Order name: O2 Per Protocol; Complete Time: dr5 07/24 13:24 Order name: O2 Sat Monitoring; Complete Time: dr5 EC: Rhythm is regular. QRS [place] is Normal. [place] interval is normal at 136 msec. QRS interval dr5 is normal at 100 msec. QT interval is normal at 474 msec. Administered Medications: Drug: NS 0.9% IV 1000 ml IV at 1000 ml once; to be given as a bolus over 60 minutes ss Route: IV; Rate: 1000 ml; Site: left antecubital; Disposition Summary: 07/24/24 16:40 Hospitalization Ordered Notes: Hospitalization Status: Observation dr5 Provider: Jimy Valenzuela Condition: Stable dr5 Problem: new dr5 Symptoms: are unchanged dr5 Bed/Room Type: Standard dr5 Location: Telemetry/MedSurg (observation)(07/25/24 15:55) Room Assignment: [employer](07/25/24 15:55) Diagnosis - Syncope Near dr5 - Dehydration dr5 Discharge Instructions: - Discharge Summary Sheet dr5 Forms: - Medication Reconciliation Form dr5 - SBAR form dr5 - Leadership Thank You Letter dr5 Prescriptions: - Reglan 10 mg Oral tablet - take 1 tablet ORAL route every 6 hours As needed take 30 minutes before meals dr5 and at bedtime; 20 tablet; Refills: 0, Product Selection Permitted - benzonatate 200 mg Oral capsule - take 1 capsule ORAL route 3 times per day As needed as needed; 30 capsule; dr5 Refills: 0, Product Selection Permitted Addendum: 07/28/2024 13:00 Co-signature as Attending Physician, Wade Morel MD I agree with the assessment and c meek plan of care. Signatures: Dispatcher [employer] Wade Skelton MD MD cha Blanchard, Shelby RN RN ss Dolores Wallace RN RN [id number] Lawanda Shabazz RN RN [id number] Moi Strange, GREETING CARD WRITER-C GREETING CARD WRITER-Cdr5 Corrections: (The following items were deleted from the chart) 07/24 13:24 13:24 BASIC METABOLIC PANEL+C.LAB.BRZ ordered. EDMS EDMS 13:24 13:24 CBC+H.LAB.BRZ ordered. EDMS EDMS 13:24 13:24 HEPATIC FUNCTION+C.LAB.BRZ ordered. EDMS EDMS 13:24 13:24 MAGNESIUM+C.LAB.BRZ ordered. EDMS EDMS 13:24 13:24 PROTIME (+INR)+COAG.LAB.BRZ ordered. EDMS EDMS 13:24 13:24 PTT, ACTIVATED+COAG.LAB.BRZ ordered. EDMS EDMS 13:24 13:24 Troponin High Sensitivity+C.LAB.BRZ ordered. EDMS EDMS 13:24 13:24 Urinalysis+U.LAB.BRZ ordered. EDMS EDMS 13:24 13:24 SARS-COV-2 Antigen Rapid+I.LAB.BRZ ordered. EDMS EDMS 13:24 13:24 Influenza Screen (A \T\ B)+BA.LAB.BRZ ordered. EDMS EDMS 16:50 16:49 Chest For PE Angio+CT.RAD.BRZ ordered. EDMS EDMS 16:50 16:50 ETHANOL+C.LAB.BRZ ordered. EDMS EDMS 16:50 16:50 Abdomen W/ Con+CT.RAD.BRZ ordered. EDMS EDMS 19:34 16:40 Telemetry/MedSurg (observation) dr5 kb3 19:34 16:40 dr5 kb3 07/25 15:55 07/24 19:34 [facility] ER HOLD kb3 ss 07/25 15:55 07/24 19:34 ERHOLD- kb3 ss
--- NOTE | 2024-07-24 17:26 | RAD REPORT ---
EXAMINATION: CTA CHEST PE CLINICAL INDICATION: Male, 63 years old. syncope TECHNIQUE: This examination was performed according to an angiographic protocol with 3D post-processi ng. This involves 3D reconstructions, MIPs, volume rendered images and/or shaded surface rendering. One or more of the following dose reduction techniques were used: Automated exposure control, adjustm ent of the mA and/or kV according to patient size, and/or iterative reconstruction. Unless otherwise specified, incidental findings do not require dedicated imaging follow-up. [id number]. COMPARISON: No priors. FINDINGS: LOWER NECK: Visualized thyroid gland and soft tissues are normal. LUNGS AND AIRWAYS: 8mm by 6 mm pulmonary nodule in the superior segment of the left lower lobe.No acu te process in lungs. Minimal scarring at the left lung base. PLEURA: No pleural effusion. No pneumothorax. Hemidiaphragms are normally positioned. MEDIASTINUM AND LYMPH NODES: No mediastinal mass or fluid collection. Normal size mediastinal, hilar, and axillary lymph nodes. Diffuse esophageal wall thickening which may reflect esophagitis. THORACIC AORTA: No thoracic aortic aneurysm. PULMONARY ARTERIES: Caliber is within normal limits. No pulmonary emboli identified. HEART: Normal heart size. No coronary calcifications.No significant pericardial effusion. OSSEOUS STRUCTURES AND CHEST WALL: No fracture or suspicious osseous lesions. UPPER ABDOMEN: Reference separate report. IMPRESSION: No evidence of pulmonary emboli to the subsegmental level. . No alternate acute process. Indeterminant left lower lobe pulmonary nodule. Neoplasm not excluded. This is likely below PET resol ution. Recommend 3 month follow-up chest CT.
--- NOTE | 2024-07-24 17:34 | RAD REPORT ---
EXAMINATION: CT ABDOMEN WITH CONTRAST CLINICAL INDICATION: Male, 63 years old.transaminitis TECHNIQUE: CT abdomen was performed, after the administration of IV contrast, as per department kassandra col. Axial, sagittal and coronal reconstructions were obtained. One or more of the following dose reduction techniques were used: Automated exposure control, adjustment of the mA and/or kV according to patient size, and/or iterative reconstruction. Unless otherwise specified, incidental findings do not require dedicated imaging follow-up. [id number]. COMPARISON: 05/23/2024 FINDINGS: LOWER CHEST: See separate report UPPER GI: No significant abnormality. LIVER: Hepatic steatosis, but otherwise unremarkable. GALLBLADDER/BILE DUCTS: No biliary ductal dilatation.? PANCREAS: No mass, ductal dilation, or ruiz-pancreatic fluid. SPLEEN: Unremarkable. ADRENALS: No adrenal masses. KIDNEYS AND URETERS: No hydronephrosis.Punctate stone in the upper pole left kidney. ABDOMINAL AORTA AND OTHER VESSELS: Normal caliber aorta and IVC. PERITONEUM: No abnormal free fluid. No free air. LYMPH NODES: No pathologic lymphadenopathy. ABDOMINAL WALL: Unremarkable SMALL BOWEL/COLON: Small bowel has normal course and caliber. No colonic wall thickening or pericolon ic inflammatory changes. MUSCULOSKELETAL: Multilevel degenerative changes in the spine. No acute fracture. ADDITIONAL FINDINGS: None. IMPRESSION: No acute findings identified in the abdomen. Hepatic steatosis.
--- NOTE | 2024-07-24 17:55 | P.HP ---
Certification for Inpatient With expected LOS: >2 Midnights Practitioner: I am a practitioner with admitting privileges, knowledge of patient current condition, hospital course, and medical plan of care. Services: Services provided to patient in accordance with Admission requirements found in Title 42 Section 412.3 of the Code of Federal Regulations Patient History Date of Service: 07/24/24 Reason for admission: syncopal attack History of Present Illness: Patient is a 63-year-old male with history of alcoholism, hypertension and PE coming in with syncope. Patient reports that he was sitting at his computer chair when he suddenly lost consciousness and woke up on the floor. He then got up and got into his bed so he fall again. He is a patient of Dr. Brock. He recently had a laparoscopic cholecystectomy for symptomatic gallstone, he has a poor oral intake after surgery. Allergies No Known Allergies Allergy (Verified 07/07/24 10:38) Home Medications: Apixaban [Eliquis] 2.5 mg PO BID 05/23/24 cloNIDine HCL [Clonidine HCl] 0.1 mg PO DAILYPRN PRN 05/23/24 Fluticasone [Flonase 50mcg Nasal [place]] 2 sprays NS DAILYPRN PRN 07/05/24 Nebivolol HCl 10 mg PO DAILY 07/05/24 Ondansetron [Zofran] 4 mg PO Q8H PRN 07/05/24 clonazePAM [Klonopin] 0.5 mg PO BIDP PRN 07/05/24 - Past Medical/Surgical History -: MGUS Blood Disorder -: Htn -: Shoulder -: Knee bilateral Arthroscopy - Family History Mother -: Cancer Notes: Breast & Ovarian - Social History Alcohol use: Yes CD- Drugs: No Caffeine use: No Review of Systems Other: Consitutional; fever(-), chills (-), rigor(-), night sweat(-), unintentional weight loss(-), malaise (+) HEENT; diplopia (-), rhinorrhea (-), epistaxis (-), otorrhea (-), otalgia (-) Respiratory; shortness of breath (-), wheezing (-), cough (-), sputum (-), pleuritic chest pain (-) Cardiovascular; chest pain (-), peripheral edema (-), paroxysmal nocturnal dyspnea (-), orthopnea (-) Gastrointestinal; nausea (-), vomiting (-), abdominal pain (-), diarrhea (-), constipation (-), melena (-), hematochezia (-) Genitourinary; urinary frequency (-), dysuria (-), urgency (-), flank pain (-), gross hematuria (-), incontinence (-) Skin; rash (-), 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 General: Not acutely ill looking, in no apparent distress,. HEENT: Normocephalic, atraumatic, nonicteric sclera, nonanemic conjunctive. Neck: Supple, without JVD or goiter or thyroid mass. Respiratory: Normal breathing effort, clear to auscultation bilaterally, no crackles no wheezing or rhonchi. Cardiovascular: Regular rate and rhythm, S1, S2 normal, no murmur no gallop. Gastrointestinal: Normal bowel sounds, nondistended, nontender, No ascites, , No masses, no hepatosplenomegaly. Extremities : No clubbing, No peripheral edema, full range of motion, no deformity, no muscle atrophy. Integumentary: No rashes, petechia, suspected lesions. Lymphatics: No axilla or cervical lymphadenopathy. Neurology; alert awake oriented x3, no focal neurologic deficit, normal affection . mood and behavior. - Studies Laboratory Data (last 24 hrs) 07/24/24 07/24/24 07/24/24 13:40 13:40 13:40 WBC 5.10 Hgb 14.2 Hct 41.3 Plt Count 181 PT 11.9 INR 1.13 APTT 29.8 Sodium 138 Potassium 4.2 BUN 19 H Creatinine 0.86 Glucose 92 Magnesium 1.7 Total Bilirubin 1.2 H AST 188 H ALT 100 H Alkaline Phosphatase 101 Microbiology Data (last 24 hrs): 07/24/24 13:35 Nasopharnyx Influenza Type A Antigen Screen - Final 07/24/24 13:35 Nasopharnyx Influenza Type B Antigen Screen - Final Assessment and Plan - Plan This is a 63 years old gentleman with a past medical history notable for alcoholism, hypertension, PE, status post laparoscopic cholecystectomy recently who presented to emergency room for episode of a syncopal attack while sitting at his computer desk and admitted for evaluation. #1 syncope Differential diagnosis cardiac or orthostatic hypotension secondary to dehydration, less likely recurrent PE Twelve-lead EKG shows no cardiac abnormality, will monitor on telemetry, transthoracic echocardiogram to look for any structural heart disease, check his orthostatic blood pressure #2 mild elevated transaminase Likely postoperative or alcoholic fatty liver, avoid any hepatotoxicity, monitor liver function test, acute hepatitis panel #3 history of hypertension Will resume his hypertensive regimen with holding parameter DVT prophylaxis enoxaparin subcu - Advance Directives Does patient have a Living Will: No Does patient have a Durable POA for Healthcare: No
[2024-07-24] MEDS ORDERED: ONDANSETRON 4 MG/2 ML VIAL IV PRN (17:56)
[2024-07-24] MEDS ORDERED: ZOLPIDEM TARTRATE 5 MG TABLET PO PRN (17:56)
[2024-07-24] MEDS ORDERED: ACETAMINOPHEN 325 MG TABLET PO PRN (17:56)
[2024-07-24] MEDS ORDERED: ACETAMINOPHEN 500 MG TAB PO PRN (17:56)
[2024-07-24 18:33] VITALS: BMI 21.7
[2024-07-24] MEDS: ENOXAPARIN 40 MG/0.4 ML SQ SCH (19:00)
[2024-07-24] MEDS ORDERED: ENOXAPARIN 40 MG/0.4 ML SQ ONE (19:34)
[2024-07-24] MEDS ORDERED: PROMETH/COD 6.25/10MG SYRUP 5ML PO PRN (23:04)
[2024-07-24] MEDS ORDERED: BENZONATATE 100 MG CAP PO PRN (23:04)
[2024-07-24] MEDS ORDERED: MUCINEX DM 12HR.SR TAB PO PRN (23:17)
[2024-07-24] MEDS ORDERED: GUAIFENESIN/DM 5 ML UCUP ONE (23:24)
[2024-07-24] MEDS: GUAIFENESIN/DM 5 ML UCUP PO PRN (23:26)
[2024-07-25 05:56] LABS: Absolute Eosinophils 0.1 K/uL (0-0.5); Absolute Lymphocytes (CBC) 0.6 K/uL (0.7-4.9); Absolute Monocytes 0.5 K/uL (0.1-1.3); Absolute Neutrophil 3.2 K/uL (1.8-8.0); Basophils % 0.6 % (0-1.3); Eosinophils % 1.4 % (0-4.4); Hematocrit 39.1 % (39.6-49.0); Hemoglobin 13.6 g/dL (13.6-17.9); Lymphocytes % 13.3 % (15.3-44.8); MCH 35.3 pg (27.0-35.0); MCHC 34.8 g/dL (32.0-36.0); MCV 101.6 fL (80-100); MPV 8.6 fL (7.6-11.3); Monocytes % 11.9 % (3.3-12.3); Neutrophils % 72.8 % (41.7-73.7); Platelets 145 thou/uL (152-406); RBC Red Blood Cell Count 3.85 M/uL (4.33-5.43); Red Cell Distribution Width 13.6 % (12.1-15.2)
[2024-07-25 06:06] LABS: Albumin 2.5 g/dL (3.4-5.0); Albumin/Globulin Ratio 0.9 (1.1-1.8); Anion Gap 13.9 mEq/L (5.0-15.0); Bilirubin Total 1.2 mg/dL (0.2-1.0); Globulin 2.7 g/dL (2.3-3.5); Potassium 2.9 mEq/L (3.5-5.1); Protein, Total 5.2 g/dL (6.4-8.2)
[2024-07-25 06:56] LABS: Hepatitis B Core IgM Nonreactive (Nonreactive); Hepatitis B surface AG Interp. Nonreactive (Nonreactive); Hepatitis C Virus Ab Nonreactive (Nonreactive)
[2024-07-25 06:57] LABS: HBsAG Nonreactive Report Report
[2024-07-25] MEDS ORDERED: ENOXAPARIN 40 MG/0.4 ML SQ ONE (09:52)
[2024-07-25] MEDS ORDERED: POTASSIUM CL SA 10 MEQ TAB PO ONE (09:52)
[2024-07-25] MEDS: POTASSIUM CL SA 10 MEQ TAB PO ONE (09:53)
--- NOTE | 2024-07-25 13:07 | P.PN ---
Subjective Date of Service: 07/25/24 Chief Complaint: syncopal attack Subjective: No new changes Patient reported that he is doing fine, no more episode of a syncopal or presyncopal attack overnight, poor oral intake after cholecystectomy but denied any nausea and vomiting abdominal pain postprandially. He has been following with his cardiology and getting a nuclear stress test and transthoracic echocardiogram every other year. He missed his scheduled transthoracic echocardiogram last winter and scheduled for this spring. Review of Systems Other: Consitutional; fever(-), chills (-), rigor(-), night sweat(-), unintentional weight loss(-), malaise (-) HEENT; diplopia (-), rhinorrhea (-), epistaxis (-), otorrhea (-), otalgia (-) Respiratory; shortness of breath (-), wheezing (-), cough (-), sputum (-), pleuritic chest pain (-) Cardiovascular; chest pain (-), peripheral edema (-), paroxysmal nocturnal dyspnea (-), orthopnea (-) Gastrointestinal; nausea (-), vomiting (-), abdominal pain (-), diarrhea (-), constipation (-), melena (-), hematochezia (-) Genitourinary; urinary frequency (-), dysuria (-), urgency (-), flank pain (-), gross hematuria (-), incontinence (-) Skin; rash (-), 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 General: Not acutely ill looking, in no apparent distress,. HEENT: Normocephalic, atraumatic, nonicteric sclera, nonanemic conjunctive. Neck: Supple, without JVD or goiter or thyroid mass. Respiratory: Normal breathing effort, clear to auscultation bilaterally, no crackles no wheezing or rhonchi. Cardiovascular: Regular rate and rhythm, S1, S2 normal, no murmur no gallop. Gastrointestinal: Normal bowel sounds, nondistended, nontender, No ascites, , No masses, no hepatosplenomegaly. Extremities : No clubbing, No peripheral edema, full range of motion, no de formity, no muscle atrophy. Integumentary: No rashes, petechia, suspected lesions. Lymphatics: No axilla or cervical lymphadenopathy. Neurology; alert awake oriented x3, no focal neurologic deficit, normal affection . mood and behavior. - Studies Laboratory Data (last 24 hrs) 07/24/24 07/24/24 07/24/24 13:40 13:40 13:40 WBC 5.10 Hgb 14.2 Hct 41.3 Plt Count 181 PT 11.9 INR 1.13 APTT 29.8 Sodium 138 Potassium 4.2 BUN 19 H Creatinine 0.86 Glucose 92 Magnesium 1.7 Total Bilirubin 1.2 H AST 188 H ALT 100 H Alkaline Phosphatase 101 Microbiology Data (last 24 hrs): 07/24/24 13:35 Nasopharnyx Influenza Type A Antigen Screen - Final 07/24/24 13:35 Nasopharnyx Influenza Type B Antigen Screen - Final Assessment And Plan - Plan This is a 63 years old gentleman with a past medical history notable for alcoholism, hypertension, PE, status post laparoscopic cholecystectomy recently who presented to emergency room for episode of a syncopal attack while sitting at his computer desk and admitted for evaluation. #1 syncope Differential diagnosis cardiac or orthostatic hypotension secondary to dehydration, less likely recurrent PE Twelve-lead EKG showed a sinus bradycardia. benefit authorizer revealed heart rate of 50-60, CT of the chest demonstrated no PE. Will keep him on on telemetry, transthoracic echocardiogram to look for any structural heart disease, check his orthostatic blood pressure #2 mild elevated transaminase Likely postoperative or alcoholic fatty liver, avoid any hepatotoxicity, monitor liver function test, acute hepatitis panel all negative, CT of the abdomen indicated fatty liver, postcholecystectomy mechanically, no sign of local complication #3 history of hypertension Blood pressure reasonably controlled without intervention, asymptomatic bradycardia with heart rate 50-60 per minute #4 moderate hypokalemia without hypomagnesemia Order potassium supplement given, I will order repeat serum potassium, phosphorus and magnesium tomorrow morning DVT prophylaxis enoxaparin subcu Disposition; plan to discharge home tomorrow
[2024-07-25] MEDS ORDERED: HYDRALAZINE HCL 20 MG/ML VIAL IV ONE (16:25)
[2024-07-25] MEDS ORDERED: DIAZEPAM 10 MG/2 ML INJ SYRINGE IV ONE (16:25)
[2024-07-25 22:38] VITALS: O2SAT 99
[2024-07-26 07:00] LABS: Magnesium 1.8 mg/dL (1.6-2.4); Phosphorus 2.7 mg/dL (2.5-4.9)
[2024-07-26] MEDS: APIXABAN 2.5 MG TABLET PO SCH (08:09)
[2024-07-26] MEDS: AMLODIPINE 5 MG TAB PO SCH (08:09)
[2024-07-26] MEDS: FAMOTIDINE 20 MG TAB PO SCH (08:09)
--- NOTE | 2024-07-26 11:07 | P.DS ---
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 Patient reports that he was sitting at his computer chair when he suddenly lost consciousness and woke up on the floor. He then got up and got into his bed so he fall again. He is a patient of Dr. Brock. He recently had a laparoscopic cholecystectomy for symptomatic gallstone, he has a poor oral intake after surgery. Hospital Course: His hospital course was uneventful, he did not experience any more syncopal attack during admission. Telemetry revealed sinus bradycardia in the range of 50 to 60s per minute but no other serious tacky bradycardia arrhythmia noted. He was tolerating oral diet well and shows no sign of alcohol withdrawal during admission. He has a appointment to see his own pattern duplicator next week. He is being discharged home after transthoracic echocardiogram is performed. He is to follow-up with his pattern duplicator for results of transthoracic echocardiogram and evaluation for event monitor. #1 syncope of unclear etiology Possible cardiac syncope, no orthostatic hypotension, Twelve-lead EKG showed sinus bradycardia. apparatus lineman revealed heart rate of 50-60, CT of the chest demonstrated no PE. transthoracic echocardiogram ordered to look for any structural heart disease, #2 mild alcoholic steatohepatitis acute hepatitis panel all negative, CT of the abdomen indicated fatty liver, postcholecystectomy status, no sign of local complication #3 history of hypertension and sinus bradycardia Blood pressure reasonably controlled without intervention, asymptomatic bradycardia with heart rate 50-60 per minute, I suggest discontinuation of nebivolol #4 moderate hypokalemia without hypomagnesemia Resolved after oral potassium supplement Vital Signs/Physical Exam: Temp Pulse Resp BP Pulse Ox 98.5 F 74 22 H 140/87 97 07/26/24 08:00 07/26/24 08:09 07/26/24 08:00 07/26/24 08:09 07/26/24 08:00 Other Physical/Emotional Findings: - Physical Exam. General: Not acutely ill looking, in no apparent distress,. HEENT: Normocephalic, atraumatic, nonicteric sclera, nonanemic conjunctive. Neck: Supple, without JVD or goiter or thyroid mass. Respiratory: Normal breathing effort, clear to auscultation bilaterally, no crackles no wheezing or rhonchi. Cardiovascular: Regular rate and rhythm, S1, S2 normal, no murmur no gallop. Gastrointestinal: Normal bowel sounds, nondistended, nontender, No ascites, , No masses, no hepatosplenomegaly. Extremities : No clubbing, No peripheral edema, full range of motion, no deformity, no muscle atrophy. Integumentary: No rashes, petechia, suspected lesions. Lymphatics: No axilla or cervical lymphadenopathy. Neurology; alert awake oriented x3, no focal neurologic deficit, normal affection . mood and behavior. Laboratory Data at Discharge: WBC 4.40 thou/uL (4.3-10.9) 07/25/24 05:15 Hgb 13.6 g/dL (13.6-17.9) 07/25/24 05:15 Hct 39.1 % (39.6-49.0) L 07/25/24 05:15 Plt Count 145 thou/uL (152-406) L 07/25/24 05:15 PT 11.9 SECONDS (9.4-12.5) 07/24/24 13:40 INR 1.13 07/24/24 13:40 APTT 29.8 SECONDS (24.3-36.9) 07/24/24 13:40 Sodium 139 mEq/L (136-145) 07/26/24 06:15 Potassium 4.0 mEq/L (3.5-5.1) D 07/26/24 06:15 BUN 16 mg/dL (7-18) 07/26/24 06:15 Creatinine 0.77 mg/dL (0.70-1.30) 07/26/24 06:15 Glucose 77 mg/dL (74-106) 07/26/24 06:15 Phosphorus 2.7 mg/dL (2.5-4.9) 07/26/24 06:15 Magnesium 1.8 mg/dL (1.6-2.4) 07/26/24 06:15 Total Bilirubin 1.2 mg/dL (0.2-1.0) H 07/25/24 05:15 AST 96 U/L (15-37) H 07/25/24 05:15 ALT 66 U/L (16-61) H 07/25/24 05:15 Alkaline Phosphatase 71 U/L (45-117) D 07/25/24 05:15 Home Medications: Apixaban [Eliquis *] 2.5 mg PO BID 05/23/24 cloNIDine HCL [Clonidine HCl] 0.1 mg PO DAILYPRN PRN 05/23/24 Fluticasone [Flonase 50MCG Nasal [place]*] 2 sprays NS DAILYPRN PRN 07/05/24 Amlodipine [Norvasc*] 5 mg PO DAILY 07/24/24 Famotidine 40 mg PO DAILY 07/24/24 Diet: AHA Activity: Ad marisel Followup: Peewee Brock MD [Primary Care Provider] -
[2024-07-26 12:22] VITALS: BP 135/87; TEMP 98.4
--- NOTE | 2024-07-26 12:34 | EKG ---
Test Date: 2024-07-24 Test Time: 13:26:32 Cloud Software Engineer: ELIZABETH MEASUREMENT RESULTS: Intervals: Rate: 50 W[place]: 136 QRSD: 100 QT: 474 QTc: 432 [place]: P: 65 W[place]: 136 QRS: 49 T: 37 INTERPRETIVE STATEMENTS: Sinus bradycardia Otherwise normal ECG Compared to ECG 05/23/2024 22:18:37 T-wave abnormality no longer present Possible ischemia no longer present Electronically Signed On 07-26-24 12:31:25 [employer]LLER by Jered Durán
--- NOTE | 2024-07-26 14:27 | ECHO ---
HEIGHT: 6 ft 0 in WEIGHT: 160 lb 0 oz DATE OF STUDY: 07/26/[address]: LAVERN Valenzuela MD 2-DIMENSIONAL: YES M.MODE: YES DOPPLER: YES COLOR FLOW: YES TDS: NO PORTABLE: YES DEFINITY: NO BUBBLE STUDY: NO DIAGNOSIS: SYNCOPAL, RULE OUT CARDIAC SYNCOPE CARDIAC HISTORY: CATHERIZATION: NO SURGERY: NO PROSTHETIC VALVE: NO PACEMAKER: NO MEASUREMENTS (cm) DIASTOLIC (NORMALS) SYSTOLIC (NORMALS) IVSd 1.1 (0.6-1.2) LA Diam 2.0 (1.9-4.0) LVEF 55-60% LVIDd 4.0 (3.5-5.7) LVIDs 2.8 (2.0-3.5) %FS 30% LVPWd 1.2 (0.6-1.2) Ao Diam 3.6 (2.0-3.7) 2 DIMENSIONAL ASSESSMENT: RIGHT ATRIUM: NORMAL LEFT ATRIUM: NORMAL RIGHT VENTRICLE: NORMAL LEFT VENTRICLE: NORMAL TRICUSPID VALVE: NORMAL MITRAL VALVE: NORMAL PULMONIC VALVE: NORMAL AORTIC VALVE: NORMAL PERICARDIAL EFFUSION: NONE AORTIC ROOT: NORMAL LEFT VENTRICULAR WALL MOTION: NORMAL. DOPPLER/COLOR FLOW: GRADE I DIASTOLIC DYSFUNCTION. COMMENTS: 1. NORMAL LEFT VENTRICULAR SYSTOLIC FUNCTION. LEFT VENTRICULAR EJECTION FRACTION 55-60%. NORMAL WALL MOTION. 2. GRADE I DIASTOLIC DYSFUNCTION. TECHNOLOGIST: ALBERTO ACEVEDO
== END 2024-07-26 12:55 | disposition home or self-care (01) | DRG 310 ==
LOC: ER 13:07 → ERHOLD 17:56 → 4TH 07-25 17:25
PROVIDERS: ADMIT Internal Medicine; ATTEND Internal Medicine
DX: R00.1 Bradycardia, unspecified (principal); E87.6 Hypokalemia; E86.0 Dehydration; K70.0 Alcoholic fatty liver; I10 Essential (primary) hypertension; R74.01 Elevation of levels of liver transaminase levels; Z86.711 Personal history of pulmonary embolism; Z59.71 Insufficient health insurance coverage; Z59.82 Transportation insecurity; Z56.0 Unemployment, unspecified; Z90.49 Acquired absence of other specified parts of digestive tract; Z79.01 Long term (current) use of anticoagulants; Z79.899 Other long term (current) drug therapy; Z11.52 Encounter for screening for COVID-19
CPT/HCPCS: 36415; 70450; 71045; 71275; 72125; 74160; 80048; 80053; 80074; 80076; 81001; 82077; 83735; 84100; 84484; 85025; 85379; 85610; 85730; 87804; 87811; 93005; 93306; J1650; Q9967